=== PATIENT | male | born 1965 | race Caucasian/White ===

== ENCOUNTER 2025-03-26 07:51 | Outpatient (CLI) | payer OTHER, SELFPAY ==
--- OUTSIDE RECORDS SUMMARY | 2025-03-26 07:53 | XMS_ITS | Clinical Summary ---
Author Organization [facility] Address 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 Use as directed. May repeat dose in 2 hours if headache recurs. 9 Tab 3 8 Active warfarin (COUMADIN) 5 MG Tablet TAKE 1 & 1/2 (ONE & ONE-HALF) TABLETS BY MOUTH ONCE DAILY 135 Tab 1 9 Active Active Problems Problem Noted Date Diagnosed Date Hyperlipidemia 06/08/2016 Chronic venous insufficiency 07/08/2015 Venous stasis ulcer of left lower extremity 06/21 Lupus anticoagulant disorder Immunizations Immunization Administration Dates Next Due TDAP Vaccine 05/27/2015 Family History Medical History Relation Name Comments Diabetes Brother Hypertension Brother Heart Attack Father Migraines Mother Relation Name Status Comments Brother Father Mother Social History Tobacco Use Types Packs/Day Years Used Date Smoking Tobacco: Some Days Cigars Smokeless Tobacco: Never Tobacco Cessation:Ready to Q uit: No; Counseling Given: Yes Alcohol Use Standard Drinks/Week Comments Yes 6 (1 standard drink = 0.6 oz pur e alcohol) Sex and Gender Information Value Date Recorded Sex Assigned at Not on file Legal Sex Male 9:57 PM CDT Gender Identity Not on file Sexual Orientation Not on file Last Filed Vital Signs Vital Sign Reading Time Taken Comments Blood Pressure 146/84 05/28/2018 8:29 AM CDT Pulse 82 05/28/2018 8:29 AM CDT Temperature 36.8 C (98.2 F) 05/28/2018 8:29 AM CDT Respiratory Rate 20 05/28/2018 8:29 AM CDT Oxygen Saturation 94% 05/28/2018 8:29 AM CDT Inhaled Oxygen Concentration - - Weight 132 kg (291 lb 1.6 oz) 05/28/2018 8:29 AM CDT Height 177.8 cm (5' 10) 05/28/2018 8:29 AM CDT Body Mass Index 41.77 05/28/2018 8:29 AM CDT Plan of Treatment Health Maintenance Due Date Last Done Comments Hepatitis C Virus (HCV) Screening 1965 Cologuard 01/24/2009 Colonoscopy 01/24/2009 Colorectal Cancer Screening 01/24/2009 Immunochemical Fecal Occult Blood 01/24/2009 Pneumococcal Immunization (5 0+ years) (1 of 1 - PCV) 01/24/2014 Zoster Immunization (1 of 2) 01/24/2014 SARS-COV-2 Immunization ( - season) 2024 Influenza Immunization (#1) 2025 Td Immunization Every 10 Yea rs (Adults With 1 Tdap) 05/27/2025 05/27/2015 Respiratory Syncytial Virus (RSV) Immunization (Adult) (1 - 1-dose 75+ series) 01/24/2039 Hepatitis B Immunization Aged Out No longer eligible based on patient's age to complete this topic Human Papillomavirus (HPV) Immunization Aged Out No longer eligible b ased on patient's age to complete this topic Meningococcal Immunization (ACWY) Aged Out No longer eligible based on patient's age to complete this topic Rotavirus Immunization Aged Out No lo nger eligible based on patient's age to complete this topic
[2025-03-26 18:06] LABS: Hematocrit 51.4 % (42.0-52.0); Hemoglobin 16.5 g/dL (14.0-18.0); Immature Granulocyte Percent A 0.6 % (0-0.5); Lymphocytes Absolute Auto 1.79 K/mm3 (0.9-3.2); Mean Corpuscular HGB Conc 32.1 g/dl (32-36); Mean Corpuscular Hemoglobin 31.6 pg (26-34); Mean Corpuscular Volume 98.5 fl (80-100); Nucleated Red Blood Cells Absolute Auto 0.000 K/mm3 (0.0-0.012); Nucleated Red Blood Cells Perc 0.0 % (0.0-0.2); Platelet Count Result 188 k/mm3 (150-375); Red Blood Count 5.22 M/mm3 (4.6-6.20); White Blood Count 6.4 K/mm3 (4.5-10.0)
[2025-03-26 18:17] LABS: INR 2.1; Prothrombin Time 23.1 Seconds (11.1-14.7)
[2025-03-26 18:26] LABS: Alanine Aminotransferase 28 U/L (6-50); Albumin Level 4.4 g/dL (3.5-5.1); Alkaline Phosphatase 75 U/L (38-126); Anion Gap 7 mmol/L (4-12); Aspartate Amino Transferase 58 U/L (17-59); Bilirubin,Total 1.2 mg/dL (0.2-1.3); Blood Urea Nitrogen 18 mg/dL (9-20); Calcium 9.3 mg/dL (8.4-10.2); Carbon Dioxide 30 mmol/L (22-30); Chloride 97 mmol/L (98-107); Cholesterol 265 mg/dL (0-200); Estimated Glomerular Filt Rate > 60; Glucose 114 mg/dL (65-110); HDL Direct 48 mg/dL; Potassium 4.9 mmol/L (3.4-5.0); Sodium 134 mmol/L (137-145); Total Protein 7.5 g/dL (6.3-8.2); Triglycerides 194 mg/dL (<150)
[2025-03-26 18:47] LABS: Hemoglobin A1C 6.4 % (<5.7)
[2025-03-26 19:02] LABS: Prostate Specific Antigen 1.4 ng/mL (< OR = 4.0); Thyroid Stimulating Hormone 1.780 uIU/mL (0.465-4.680)
== END 2025-03-26 07:52 | disposition home or self-care (01) ==
LOC: ANHGOSHLAB 07:52
PROVIDERS: PCP Student in an Organized Health Care Education/Training Program; Visit Provider Student in an Organized Health Care Education/Training Program
DX: Z12.5 Encounter for screening for malignant neoplasm of prostate (principal); Z13.29 Encounter for screening for other suspected endocrine disorder; R73.03 Prediabetes; D68.61 Antiphospholipid syndrome; E78.2 Mixed hyperlipidemia; Z68.41 Body mass index [BMI] 40.0-44.9, adult; E66.813 Obesity, class 3; Z79.01 Long term (current) use of anticoagulants; Z80.42 Family history of malignant neoplasm of prostate
CPT/HCPCS: 36415; 80053; 80061; 83036; 84153; 84443; 85025; 85610; G0103

== ENCOUNTER 2025-07-07 15:18 | Outpatient (CLI) | payer OTHER, SELFPAY ==
[2025-07-07 15:33] LABS: Hematocrit 50.6 % (42.0-52.0); Hemoglobin 17.1 g/dL (14.0-18.0); Immature Granulocyte Percent A 0.7 % (0-0.5); Lymphocytes Absolute Auto 1.99 K/mm3 (0.9-3.2); Mean Corpuscular HGB Conc 33.8 g/dl (32-36); Mean Corpuscular Hemoglobin 32.3 pg (26-34); Mean Corpuscular Volume 95.5 fl (80-100); Nucleated Red Blood Cells Absolute Auto 0.000 K/mm3 (0.0-0.012); Nucleated Red Blood Cells Perc 0.0 % (0.0-0.2); Platelet Count Result 201 k/mm3 (150-375); Red Blood Count 5.30 M/mm3 (4.6-6.20); White Blood Count 7.3 K/mm3 (4.5-10.0)
[2025-07-07 16:28] LABS: Alanine Aminotransferase 39 U/L (6-50); Albumin Level 4.7 g/dL (3.5-5.1); Alkaline Phosphatase 95 U/L (38-126); Anion Gap 8 mmol/L (4-12); Aspartate Amino Transferase 46 U/L (17-59); Bilirubin,Total 1.0 mg/dL (0.2-1.3); Blood Urea Nitrogen 21 mg/dL (9-20); Calcium 9.6 mg/dL (8.4-10.2); Carbon Dioxide 28 mmol/L (22-30); Chloride 101 mmol/L (98-107); Estimated Glomerular Filt Rate > 60; Glucose 154 mg/dL (65-110); Potassium 4.2 mmol/L (3.4-5.0); Sodium 137 mmol/L (137-145); Total Protein 7.9 g/dL (6.3-8.2)
[2025-07-07 16:31] LABS: INR 1.7; Prothrombin Time 19.6 Seconds (11.1-14.7)
[2025-07-09 17:35] LABS: Hemoglobin A1C 6.6 % (<5.7)
== END 2025-07-07 15:19 | disposition home or self-care (01) ==
PROVIDERS: PCP Student in an Organized Health Care Education/Training Program; Visit Provider Internal Medicine Hematology & Oncology
DX: D68.61 Antiphospholipid syndrome (principal); R73.01 Impaired fasting glucose
CPT/HCPCS: 36415; 80053; 83036; 85025; 85610